=== PATIENT | female | born 1985 | race Two or more races ===

== ENCOUNTER 2022-01-14 22:05 | Inpatient (IN) | payer OTHER ==
[~2022-01-14] VITALS: Ht 170.2 cm; Wt 106.1 kg
[2022-01-14] MEDS ORDERED: AMPICILLIN 2,000 MG in NACL 0.9% MINI-BAG PLUS 100 ML IV STA (22:56)
[2022-01-14 23:00] VITALS: BP 129/88
[2022-01-14] MEDS ORDERED: OXYTOCIN 20 UNITS in LACTATED RINGERS 1,000 ML IV SCH (23:00)
[2022-01-14] MEDS ORDERED: MORPHINE SULFATE 5 MG/ML VIAL IVP PRN (23:00)
[2022-01-14] MEDS ORDERED: PROMETHAZINE 25 MG/ML VIAL IVP PRN (23:00)
[2022-01-14] MEDS ORDERED: METHYLERGONOVINE 0.2 MG/ML AMP IM PRN (23:00)
[2022-01-14] MEDS ORDERED: NALBUPHINE 10 MG/ML AMP IVP PRN (23:00)
[2022-01-14] MEDS ORDERED: ONDANSETRON 4 MG/2 ML VIAL IVP PRN (23:00)
[2022-01-14] MEDS ORDERED: CARBOPROST 250 MCG/ML AMP IM PRN (23:00)
[2022-01-15 00:01] LABS: BASOPHILS % (AUTO) 0.4 % (0.0-2.0); EOSINOPHILS # (AUTO) 0.1 K/uL (0-0.4); EOSINOPHILS % (AUTO) 0.7 % (0.0-4.0); HEMATOCRIT 26.8 % (36-48); HEMOGLOBIN 8.6 g/dL (12.0-16.0); LYMPHOCYTES # (AUTO) 1.3 K/uL (2.5-16.5); LYMPHOCYTES % (AUTO) 17.1 % (20.5-51.1); MEAN CORPUSCULAR HEMOGLOBIN 22 pg (27-31); MEAN CORPUSCULAR HGB CONC 32 g/dL (33-37); MEAN CORPUSCULAR VOLUME 69.7 fL (80-94); MONOCYTES # (AUTO) 0.6 K/uL (0.8-1.0); NEUTROPHILS # (AUTO) 5.8 K/uL (1.8-7.7); NEUTROPHILS % (AUTO) 73.8 % (42.2-75.2); PLATELET COUNT (AUTO) 294 K/uL (140-450); RED BLOOD CELL COUNT(AUTO) 3.84 MIL/uL (4.20-5.40); RED CELL DISTRIBUTION WIDTH 18.2 % (11.6-13.7); WHITE BLOOD COUNT (AUTO) 7.8 K/uL (4.8-10.8)
[2022-01-15 00:01] LABS: APPEARANCE,URINE CLEAR (CLEAR); BILIRUBIN,URINE NEGATIVE (NEGATIVE); BLOOD, URINE 1+ (NEGATIVE); COLOR,URINE YELLOW (YELLOW); LEUKOCYTE ESTERASE ,URINE NEGATIVE (NEGATIVE); NITRITE, URINE NEGATIVE (NEGATIVE); UGLUCOSE NEGATIVE (NEGATIVE)
[2022-01-15 00:13] LABS: WBC,URINE 0-5 /HPF (0-5)
[2022-01-15 00:19] LABS: PROTHROMBIN TIME 9.1 secs (10.8-13.4)
[2022-01-15 00:22] LABS: ALBUMIN 2.4 g/dL (3.4-5.0); CARBON DIOXIDE 25.6 mmol/L (21-32); CREATININE 0.7 mg/dL (0.6-1.3); POTASSIUM 3.6 mmol/L (3.5-5.1); TOTAL BILIRUBIN 0.2 mg/dL (0.0-1.0)
[2022-01-15] MEDS ORDERED: PNV1TABL5 PO (01:16)
[2022-01-15] MEDS: LACTATED RINGERS 1,000 ML IV SCH ×3 (01:40→12:08)
[2022-01-15] MEDS ORDERED: AMPICILLIN 1,000 MG in NACL 0.9% MINI-BAG PLUS 50 ML IV SCH ×2 (04:00→12:00)
[2022-01-15] MEDS ORDERED: MORPHINE SULFATE 10 MG/ML VIAL ONE (04:49)
[2022-01-15] MEDS ORDERED: OXYTOCIN 20 UNITS/LR PREMIX 1,000 ML IV ONE (07:31)
[2022-01-15] MEDS ORDERED: AMPICILLIN 2,000 MG in NACL 0.9% MINI-BAG PLUS 100 ML IV SCH (08:30)
[2022-01-15] MEDS ORDERED: ROPIVACAINE 0.2%/NS PREMIX 200 ML EPI ONE (08:38)
[2022-01-15] MEDS ORDERED: ROPIVACAINE 0.2%/NS PREMIX 100 ML EPI SCH (09:05)
[2022-01-15] MEDS ORDERED: AMPICILLIN 2,000 MG VIAL ONE (09:11)
[2022-01-15] MEDS ORDERED: AMPICILLIN 1,000 MG VIAL ONE (13:30)
[2022-01-15] MEDS ORDERED: TEMAZEPAM 15 MG CAP PO PRN (14:00)
[2022-01-15] MEDS ORDERED: OXYTOCIN 10 UNITS/ML VIAL IM PRN (14:00)
[2022-01-15] MEDS ORDERED: IBUPROFEN 800 MG TAB PO PRN (14:00)
[2022-01-15] MEDS ORDERED: BENZOCAINE/MENTHOL 20%-0.5% 60 GM CAN TP PRN (14:00)
[2022-01-15] MEDS ORDERED: oxyCODONE/APAP 5/325 MG 1 TAB TAB PO PRN (14:00)
[2022-01-15] MEDS ORDERED: METHYLERGONOVINE 0.2 MG/ML AMP IM PRN (14:00)
[2022-01-15] MEDS: oxyCODONE/APAP 5/325 MG 1 TAB TAB PO PRN ×2 (15:42→21:10)
[2022-01-15] MEDS ORDERED: DOCUSATE SOD/SENNA 50/8.6 MG 1 TAB PO SCH (21:00)
[2022-01-16 06:29] LABS: HEMATOCRIT 24.9 % (36-48)
--- NOTE | 2022-01-16 09:34 | NUR ---
PATIENT HAS BEEN SCREENED AND CATEGORIZED LOW NUTRITION RISK. PATIENT WILL BE SEEN WITHIN 7 DAYS OF ADMISSION. 01/15/22-01/21/[address]
== END 2022-01-16 15:10 | disposition home or self-care (01) | DRG 560 ==
LOC: MLD 22:05 → MFCC 01-15 18:10
PROVIDERS: ADMIT Obstetrics & Gynecology; ATTEND Obstetrics & Gynecology
PROC: 10D07Z6 Extraction of Products of Conception, Vacuum, Via Natural or Artificial Opening (ICD-10-PCS; principal; 2022-01-15)
PROC: 3E0R3BZ Introduction of Anesthetic Agent into Spinal Canal, Percutaneous Approach (ICD-10-PCS; 2022-01-15)
PROC: 00HU33Z Insertion of Infusion Device into Spinal Canal, Percutaneous Approach (ICD-10-PCS; 2022-01-15)
DX: O76 Abnormality in fetal heart rate and rhythm complicating labor and delivery (principal); Z37.0 Single live birth; Z20.822 Contact with and (suspected) exposure to COVID-19; Z3A.40 40 weeks gestation of pregnancy
CPT/HCPCS: 36415; 51702; 80053; 81001; 85018; 85025; 85610; 85730; 86592; 86886; 86900; 86901; 87340; 90715; J0290; J2270; J2590; J2795

== ENCOUNTER 2022-03-14 06:01 | Day surgery (SDC) | payer OTHER ==
[2022-03-11 10:41] LABS: ANION GAP 10.2 (8-16); CREATININE 0.7 mg/dL (0.6-1.3); POTASSIUM 4.2 mmol/L (3.5-5.1)
[2022-03-11 10:50] LABS: BASOPHILS % (AUTO) 0.6 % (0.0-2.0); EOSINOPHILS # (AUTO) 0.1 K/uL (0-0.4); EOSINOPHILS % (AUTO) 1.6 % (0.0-4.0); HEMATOCRIT 32.9 % (36-48); HEMOGLOBIN 10.4 g/dL (12.0-16.0); LYMPHOCYTES # (AUTO) 1.8 K/uL (2.5-16.5); LYMPHOCYTES % (AUTO) 30.1 % (20.5-51.1); MEAN CORPUSCULAR HEMOGLOBIN 24 pg (27-31); MEAN CORPUSCULAR HGB CONC 32 g/dL (33-37); MEAN CORPUSCULAR VOLUME 75.8 fL (80-94); MONOCYTES # (AUTO) 0.4 K/uL (0.8-1.0); MONOCYTES % (AUTO) 6.3 % (1.7-9.3); NEUTROPHILS # (AUTO) 3.7 K/uL (1.8-7.7); NEUTROPHILS % (AUTO) 61.4 % (42.2-75.2); PLATELET COUNT (AUTO) 300 K/uL (140-450); RED BLOOD CELL COUNT(AUTO) 4.35 MIL/uL (4.20-5.40); RED CELL DISTRIBUTION WIDTH 21.2 % (11.6-13.7)
[~2022-03-14] VITALS: Ht 170.2 cm; Wt 99.8 kg
[~2022-03-14 06:01] MED LIST: PNV1TABL5 PO
[2022-03-14] MEDS ORDERED: BUPIVACAINE-MPF 0.25% 30 ML VIAL INJ ONE (07:16)
== END 2022-03-14 10:55 | disposition home or self-care (01) ==
LOC: MMU 06:01 → MDS 06:01
PROVIDERS: ATTEND Obstetrics & Gynecology
DX: Z30.2 Encounter for sterilization (principal)
CPT/HCPCS: 36415; 58670; 80048; 81025; 82374; 85025; 87426; J3490